=== PATIENT | male | born 1975 | race Two or more races ===

== ENCOUNTER → 2022-01-22 | Outpatient (CLI) | payer OTHER | LOC: M RAD 07:46 → EDSEX 07:46 | PROVIDERS: ATTEND Internal Medicine | DX: J32.9 Chronic sinusitis, unspecified (principal) ==

== ENCOUNTER → 2022-03-05 | Outpatient (CLI) | payer OTHER | LOC: M WUC 13:46 | PROVIDERS: ATTEND Internal Medicine | DX: M54.30 Sciatica, unspecified side (principal) ==

== ENCOUNTER → 2022-05-15 | Outpatient (CLI) | payer OTHER | LOC: M RAD 17:55 | PROVIDERS: ATTEND Otolaryngology | DX: J32.4 Chronic pansinusitis (principal) ==

== ENCOUNTER → 2022-05-24 | Outpatient (CLI) | payer OTHER ==
[~2022-05-24] MED LIST: MELA5TAB47 PO
== END ==
LOC: M LABSMTC 09:23
PROVIDERS: ATTEND Anesthesiology
DX: Z01.812 Encounter for preprocedural laboratory examination (principal); Z20.822 Contact with and (suspected) exposure to COVID-19

== ENCOUNTER 2022-05-28 09:53 | Day surgery (SDC) | payer OTHER ==
[~2022-05-28] VITALS: Ht 188 cm; Wt 70.3 kg
[2022-05-28] MEDS ORDERED: LR 1,000 ML IV SCH ×3 (10:10→14:30)
[2022-05-28] MEDS ORDERED: METHYLENE BLUE 0.5% (5MG/ML) 10 ML AMP (PROVAYBLUE) As Ordered ONE ×2 (10:38→10:39)
[2022-05-28] MEDS ORDERED: LIDOCAINE W/EPINEPHRINE 1% 20ML VIAL As Ordered ONE (10:38)
[2022-05-28] MEDS ORDERED: ROCURONIUM BROMIDE 50MG/5ML VIAL As Ordered ONE ×2 (12:15→12:47)
[2022-05-28] MEDS ORDERED: MIDAZOLAM INJ 2MG/2ML VIAL As Ordered ONE (12:15)
[2022-05-28] MEDS ORDERED: propofoL 200 MG/20 ML VIAL As Ordered ONE (12:15)
[2022-05-28] MEDS ORDERED: METOCLOPRAMIDE INJ 10MG/2ML VIAL As Ordered ONE (12:15)
[2022-05-28] MEDS ORDERED: ONDANSETRON 4MG 2ML VIAL As Ordered ONE (12:15)
[2022-05-28] MEDS ORDERED: fentaNYL 250 MCG/5 ML INJECTION As Ordered ONE (12:15)
[2022-05-28] MEDS ORDERED: LIDOCAINE 2% 100MG/5ML SDV (FOR ANES.) As Ordered ONE (12:15)
[2022-05-28] MEDS ORDERED: SUGAMMADEX SODIUM 500 MG/5 ML VIAL (BRIDION) As Ordered ONE (12:15)
[2022-05-28] MEDS ORDERED: ACETAMINOPHEN 1000MG 100ML IV BAG As Ordered ONE (12:16)
[2022-05-28] MEDS ORDERED: LACRILUBE (AKWA TEARS) OPHTH OINT 3.5GM As Ordered ONE (12:25)
[2022-05-28] MEDS ORDERED: OXYMETAZOLINE 0.05% NASAL SPRAY (AFRIN) As Ordered ONE (12:25)
[2022-05-28] MEDS ORDERED: EPINEPHrine INJ 1 MG/ML 1ML AMP As Ordered ONE (12:29)
[2022-05-28] MEDS ORDERED: EPINEPHrine 1MG/ML INJ 30ML MD-VIAL As Ordered ONE (12:31)
[2022-05-28] MEDS ORDERED: oxyCODONE 5MG TAB PO PRN (14:05)
[2022-05-28] MEDS ORDERED: METOCLOPRAMIDE INJ 10MG/2ML VIAL IV PRN (14:05)
[2022-05-28] MEDS ORDERED: fentaNYL 100 MCG/2 ML INJECTION IV PRN (14:05)
[2022-05-28] MEDS ORDERED: HYDROMORPHONE HCL 0.5 MG/ 0.5 ML SYRINGE IV PRN (14:05)
[2022-05-28] MEDS ORDERED: ONDANSETRON 4MG 2ML VIAL IV PRN (14:05)
[2022-05-28] MEDS ORDERED: ACETAMINOPH W/CODEINE #3 TAB UD PO PRN (14:30)
[2022-05-28 15:23] VITALS: BP 148/88
== END 2022-05-28 15:26 | disposition home or self-care (01) ==
LOC: M SDC 09:53
PROVIDERS: ATTEND Otolaryngology
DX: J32.9 Chronic sinusitis, unspecified (principal); R51.9 Headache, unspecified; F17.210 Nicotine dependence, cigarettes, uncomplicated
CPT/HCPCS: 30520; 31255; 31267; C2625; J0131; J0171; J1100; J2250; J2405; J2765; J3010; Q9968

== ENCOUNTER → 2025-02-08 | Outpatient (REF) | payer OTHER | LOC: M LAB REF 20:31 | PROVIDERS: ATTEND Physician Assistant | DX: J02.9 Acute pharyngitis, unspecified (principal) ==